=== PATIENT | female | born 1990 | race Caucasian/White ===

== ENCOUNTER 2023-08-11 08:02 | Outpatient (REF) | payer OTHER, SELFPAY ==
--- NOTE | ~2023-08-11 | US_ITS ---
EXAMINATION: US PELVIS CLINICAL INFORMATION: Right pelvic pain, last menstrual period 07/31/2023. COMPARISON: None available. TECHNIQUE: Ultrasound of the pelvis is performed using both transabdominal and transvaginal transducers along with Doppler. Transvaginal imaging is performed due to inadequate visualization transabdominally. FINDINGS: The uterus is anteverted, heterogeneous and measures 8.5 x 3.3 x 5.1 cm. A 0.8 x 0.5 x 0.6 cm hypoechoic myometrial lesion in the lower uterine segment, abutting the endometrium, is characteristic of a fibroid. No significant free fluid. Right ovary measures 1.7 x 2.1 x 1.2 cm, volume 2.7 mL and contains a 1.3 cm anechoic structure characteristic of a follicle. Left ovary measures 2.3 x 2.0 x 2.0 cm, volume 4.6 mL and contains a 1.0 cm anechoic structure characteristic of a follicle. There is no specific indication for additional imaging at this time. Endometrial thickness is 9 mm. US/US pelvic and transvaginal IMPRESSION: 1. A 0.8 x 0.5 x 0.6 cm hypoechoic myometrial lesion in the lower uterine segment, abutting the endometrium, is characteristic of a fibroid. 2. Endometrial thickness is 9 mm.
== END 2023-08-11 08:03 | disposition home or self-care (01) ==
LOC: HO.UMASIMG 08:02
PROVIDERS: Visit Provider Family Medicine
DX: R10.2 Pelvic and perineal pain (principal); N39.41 Urge incontinence
CPT/HCPCS: 76830; 76856

== ENCOUNTER 2024-08-28 06:23 | Outpatient (REF) | payer OTHER, SELFPAY ==
--- NOTE | ~2024-08-28 | US_ITS ---
CLINICAL HISTORY: LEFT FLANK AND LLQ PAIN Retroperitoneal ultrasound Comparison: None Findings: The kidneys are normal in echotexture bilaterally. No hydronephrosis. The right kidney is normal in size, measuring 10.8cm in length. There is a cyst in the midportion with a thin internal septation measuring 1.0 1.0 x 1.1 cm. The left kidney is normal in size, measuring 11.8cm in length. The urinary bladder is unremarkable. Prevoid volume 876.0 mL. Postvoid volume 13.2 mL. Ureteral jets are visualized bilaterally. Impression: No acute findings. This document has been electronically signed by: Tran Ruelas MD on 08/29/2024 14:15:05
--- OUTSIDE RECORDS SUMMARY | 2024-08-28 06:26 | XMS_ITS | Clinical Summary ---
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 Name Role Phone Unavailable Primary Care Provider Unavailabl e Social History Tobacco Use Types Packs/Day Years Used Date Smoking Tobacco: Never Assessed Sex and Gender Information Value Date Recorded Sex Assigned at Not on file Gender Identity Not on file Sexual Orientation Not on file Plan of Treatment Health Maintenance Due Date Last Done Comments HIV screen 2007 Hepatitis C Screening 2007 Hepatitis B vaccine (0-59 yrs) and Risk (1) 2008 Tetanus/Diphtheria/Pertussis Vaccines (1 - Tdap) 04/04 HPV test 2019 PAP Smear 2019 Covid-19 Vaccine (1 - 2023-25 season) 2024 Influenza (Flu) vaccine (1 o f 1 - Influenza standard series) 01/15/2024
== END 2024-08-28 06:24 | disposition home or self-care (01) ==
LOC: HO.UMASIMG 06:23
PROVIDERS: Visit Provider Family Medicine
DX: R10.32 Left lower quadrant pain (principal)
CPT/HCPCS: 76770

== ENCOUNTER → 2024-08-28 11:00 | Outpatient (BNV) | payer OTHER, SELFPAY | PROVIDERS: Visit Provider Radiology Diagnostic Radiology | DX: R10.32 Left lower quadrant pain (principal) | CPT/HCPCS: 76770 ==